=== PATIENT | male | born 1930 | race Native Hawaiian/Other Pacific Islander ===

== ENCOUNTER 2022-04-26 06:50 | Emergency (ER) | payer OTHER ==
[~2022-04-26] VITALS: Ht 167.6 cm; Wt 45.4 kg
[2022-04-26 06:52] VITALS: TEMP 97.2
[2022-04-26 08:43] VITALS: BP 110/55
== END 2022-04-26 08:43 | disposition home or self-care (01) ==
LOC: ED 06:50
DX: Z43.1 Encounter for attention to gastrostomy (principal); R10.84 Generalized abdominal pain
CPT/HCPCS: 96372; 99283; J2270; J2405